=== PATIENT | female | born 1990 | race Two or more races ===

== ENCOUNTER 2017-11-23 22:46 | Outpatient (CLI) | payer OTHER ==
[~2017-11-23 22:46] MED LIST: DESPEC DM SYRU120 ML PO
== END 2017-11-24 09:33 | disposition home or self-care (01) ==
LOC: OBS/DEL 22:46
DX: O46.8X2 Other antepartum hemorrhage, second trimester (principal); O26.892 Other specified pregnancy related conditions, second trimester; N93.0 Postcoital and contact bleeding; Z34.02 Encounter for supervision of normal first pregnancy, second trimester

== ENCOUNTER 2018-03-29 11:47 | Inpatient (IN) | payer OTHER ==
[~2018-03-29] VITALS: Ht 149.9 cm; Wt 69.4 kg
== END 2018-03-31 14:20 | disposition home or self-care (01) | DRG 775 ==
LOC: LDR 11:47 → OB/GYN 11:47
PROC: 10E0XZZ Delivery of Products of Conception, External Approach (ICD-10-PCS; principal; 2018-03-29)
PROC: 4A1HXCZ Monitoring of Products of Conception, Cardiac Rate, External Approach (ICD-10-PCS; 2018-03-29)
DX: O80 Encounter for full-term uncomplicated delivery (principal); Z37.0 Single live birth; Z3A.40 40 weeks gestation of pregnancy

== ENCOUNTER 2021-04-30 21:56 | Emergency (ER) | payer OTHER ==
[~2021-04-30] VITALS: Ht 152.4 cm; Wt 56.2 kg
[2021-04-30] MEDS ORDERED: ALLEGRA ALLERGY60 MG (22:16)
[2021-05-01] MEDS ORDERED: ZEBUTAL 50-3251 EACH PO (04:07)
== END 2021-05-01 04:27 | disposition home or self-care (01) ==
LOC: ER 21:56
DX: G44.89 Other headache syndrome (principal)

== ENCOUNTER 2021-05-12 20:21 | Emergency (ER) | payer OTHER ==
[~2021-05-12] VITALS: Ht 152.4 cm; Wt 59.4 kg
[~2021-05-12 20:21] MED LIST changes: +ALLEGRA ALLERGY60 MG; +ZEBUTAL 50-3251 EACH PO
== END 2021-05-12 22:34 | disposition home or self-care (01) ==
LOC: ER 20:21
DX: N39.0 Urinary tract infection, site not specified (principal); R10.9 Unspecified abdominal pain

== ENCOUNTER 2021-05-27 14:57 | Emergency (ER) | payer OTHER ==
[~2021-05-27] VITALS: Ht 152.4 cm; Wt 59.0 kg
[2021-05-27] MEDS ORDERED: PEPCID AC20 MG PO (20:25)
[2021-05-27] MEDS ORDERED: PROTONIX20 MG PO (20:25)
[2021-05-27] MEDS ORDERED: CARAFATE1 GM PO (20:25)
[2021-05-27] MEDS ORDERED: ACETAMINOPHEN650 M2 PO (21:03)
[2021-05-27] MEDS ORDERED: BUTALB-ACETAMI1 EACH PO (21:03)
== END 2021-05-27 22:03 | disposition home or self-care (01) ==
LOC: ER 14:57
DX: N83.201 Unspecified ovarian cyst, right side (principal); Z03.818 Encounter for observation for suspected exposure to other biological agents ruled out

== ENCOUNTER 2025-02-21 20:31 | Emergency (ER) | payer OTHER ==
[~2025-02-21] VITALS: Ht 149.9 cm; Wt 55.8 kg
[~2025-02-21 20:31] MED LIST changes: +ACETAMINOPHEN650 M2 PO; +BUTALB-ACETAMI1 EACH PO; +CARAFATE1 GM PO; +PEPCID AC20 MG PO; +PROTONIX20 MG PO
[2025-02-21] MEDS ORDERED: 0.9 % SODIUM CHLORIDE 1,000 ML IV STA (22:21)
[2025-02-21] MEDS ORDERED: ONDANSETRON HCL 2 MG/ML VIAL IV STA (22:25)
[2025-02-21] MEDS ORDERED: FAMOtidine 10 MG/ML (4ML VIAL) IV PUSH STA (22:26)
[2025-02-21] MEDS ORDERED: HYOSCYAMINE SULFATE 0.125 MG TAB.SUBL SL ONE (22:30)
[2025-02-21] MEDS ORDERED: ONDANSETRON HCL 2 MG/ML VIAL ONE (22:33)
[2025-02-21] MEDS ORDERED: FAMOTIDINE/PF 20 MG/2 ML VIAL ONE (22:34)
[2025-02-21] MEDS ORDERED: HYOSCYAMINE SULFATE 0.125 MG TAB.SUBL ONE (22:34)
[2025-02-21 23:17] LABS: BASO % 0.4 % (0.1-1.2); EOS # 0.08 (0.04-0.54); EOS % 1.1 % (0.7-7.0); LYMPH # 0.47 (1.18-3.74); LYMPH % 6.5 % (19.3-53.1); MEAN PLATELET VOLUME 9.10 fl (9.4-12.4); MONO # 0.28 (0.24-0.82); MONO % 3.9 % (4.7-12.5); NEUT # 6.39 (1.56-6.13); NEUT % 87.8 % (34.0-71.1); RED CELL DISTRIBUTION WIDTH 12.4 % (11.6-14.4)
[2025-02-21] MEDS ORDERED: ACETAMINOPHEN 500 MG GEL..CAP PO ONE (23:27)
[2025-02-21] MEDS ORDERED: ACETAMINOPHEN 500 MG GEL..CAP PO STA (23:29)
[2025-02-21 23:36] LABS: BUN CREA RATIO 14.0 (7.0-25.0); CREATININE SERUM 0.76 mg/dL (0.55-1.02); GFR 87.11; GLUCOSE FASTING 103.0 mg/dL (65-100); OSMOLALITY SERUM 273.0 MOSM/KG (275-295)
[2025-02-22] MEDS ORDERED: PEPCID40 MG PO (02:09)
[2025-02-22] MEDS ORDERED: INTESTINEX680 M2 PO (02:09)
[2025-02-22] MEDS ORDERED: ZOFRAN8 MG PO (02:09)
== END 2025-02-22 02:13 ==
LOC: ER 20:31
DX: K52.9 Noninfective gastroenteritis and colitis, unspecified (principal); R11.10 Vomiting, unspecified